=== PATIENT | female | born 1995 ===

== ENCOUNTER 2022-06-09 20:33 | Inpatient (IN) | payer BC ==
[~2022-06-09] VITALS: Ht 160 cm; Wt 56.7 kg
--- NOTE | 2022-06-09 22:37 | NUR ---
Seen and examined by Dr. Shah
[2022-06-09] MEDS ORDERED: IOHEXOL 300MG/ML 100 ML INFUS..BTL ONE (22:43)
[2022-06-09] MEDS ORDERED: IV NORMAL SALINE 250 ML IV ONE (22:43)
[2022-06-09] MEDS ORDERED: SWABABLE VALVE TRANSFER SET EA MC ONE (22:43)
[2022-06-09] MEDS ORDERED: ONDANSETRON 4 MG/2 ML VIAL IV ONE (22:45)
[2022-06-09] MEDS ORDERED: HYDROMORPHONE 1 MG/1 ML DISP.SYRIN IV ONE (22:45)
[2022-06-09 22:53] LABS: HEMATOCRIT 37.3 % (31.2-41.9); MEAN CORPUSCULAR HEMOGLOBIN 31.3 uug (24.7-32.8); MEAN CORPUSCULAR VOLUME 90.4 fL (75.5-95.3); PLATELET COUNT (AUTO) 342 K/uL (179-408)
--- NOTE | 2022-06-09 22:54 | NUR ---
CT in progress. R AC IV SL noted 22g
[2022-06-09] MEDS ORDERED: HYDROMORPHONE 1 MG/1 ML DISP.SYRIN ONE (22:58)
[2022-06-09] MEDS ORDERED: ONDANSETRON 4 MG/2 ML VIAL ONE (22:58)
[2022-06-09 23:19] LABS: BILIRUBIN,DIRECT 0.1 mg/dL (0.0-0.2); BILIRUBIN,TOTAL 0.4 mg/dL (0.2-1.0); CREATININE 0.8 mg/dL (0.6-1.3); POTASSIUM 3.3 mmol/L (3.5-5.1); TOTAL PROTEIN, SERUM 7.7 g/dL (6.4-8.2)
[2022-06-10] VITALS (7 sets, daily range): BP systolic 107–118; BP diastolic 58–72
[2022-06-10] MEDS ORDERED: SPIR100T5 PO (00:26)
[2022-06-10] MEDS ORDERED: REMEDY ESSENTIAL ZINC PASTE 113 GM TP PRN (00:30)
[2022-06-10] MEDS ORDERED: POTASSIUM CHLORIDE 10 MEQ TAB.PRT.SR PO ONE (00:30)
[2022-06-10] MEDS ORDERED: MAGNESIUM HYDROXIDE 30 ML LIQUID UDC PO PRN (00:30)
[2022-06-10] MEDS ORDERED: MORPHINE SULFATE 2 MG/1 ML DISP.SYRIN IV PRN (00:30)
[2022-06-10] MEDS ORDERED: ACETAMINOPHEN 325 MG TABLET PO PRN (00:30)
[2022-06-10] MEDS ORDERED: ONDANSETRON 4 MG/2 ML VIAL IV PRN (00:30)
[2022-06-10] MEDS ORDERED: IV NS 1000 ML 1,000 ML IV PRN (00:30)
[2022-06-10] MEDS ORDERED: PIPERACILLIN/TAZOBACTAM/D5W 50 ML IV ONE (00:39)
[2022-06-10] MEDS ORDERED: PIPERACILLIN SODIUM/TAZOBACTAM 3.375 G in IV DEXTROSE 5% 50 ML IV ONE (00:45)
[2022-06-10] MEDS ORDERED: IV D5W-0.45% NS +20 KCL 1,000 ML IV ONE ×2 (01:07→01:15)
--- NOTE | 2022-06-10 02:46 | NUR ---
Endorsed to [place] BOYKIN, transported pt. to 303
--- NOTE | 2022-06-10 03:00 | NUR ---
PATIENT BROUGHT UP TO THE FLOOR VIA GURNEY. PATIENT IS A/O X4. ADMITTED FOR ABDOMINAL PAIN/APPENDICITIS. VSS UPON ADMISSION TO THE FLOOR. ORIENTED TO ROOM AND CALL LIGHT. CALL LIGHT IN REACH. ALL NEEDS ATTENDED. WILL CONTINUE TO MONITOR AND ASSESS.
[2022-06-10] MEDS ORDERED: PIPERACILLIN SODIUM/TAZOBACTAM 3.375 G in IV DEXTROSE 5% 50 ML IV SCH (06:00)
[2022-06-10] MEDS: PIPERACILLIN SODIUM/TAZOBACTAM 3.375 G in IV DEXTROSE 5% 100 ML IV SCH ×2 (08:35→15:57)
[2022-06-10 10:42] LABS: *URINE HCG, QUAL NEGATIVE (NEGATIVE)
[2022-06-10] MEDS ORDERED: BUPIVACAINE/EPI PF 0.25% 10 ML VIAL IJ ONE (10:55)
[2022-06-10] MEDS ORDERED: LIDOCAINE HCL 1% 20 ML VIAL ONE (10:55)
[2022-06-10] MEDS ORDERED: NEOMY/BACITRAC/POLYMI OINT 28.35 GM TUBE ONE (10:55)
[2022-06-10] MEDS ORDERED: FENTANYL CITRATE 100 MCG/2 ML AMPUL ONE (11:23)
[2022-06-10] MEDS ORDERED: ROCURONIUM BROMIDE 50 MG/5 ML VIAL ONE (11:24)
[2022-06-10] MEDS ORDERED: HYDROMORPHONE 2 MG/1 ML DISP.SYRIN ONE (11:24)
[2022-06-10] MEDS ORDERED: MIDAZOLAM HCL 2 MG/2 ML VIAL ONE (11:24)
[2022-06-10] MEDS ORDERED: FAMOTIDINE. 20 MG/2 ML VIAL IV ONE (11:24)
[2022-06-10] MEDS ORDERED: IV LACTATED RINGERS SOLUTION 1,000 ML IV PRN (14:45)
[2022-06-10] MEDS ORDERED: IV LACTATED RINGERS SOLUTION 1,000 ML IV SCH (14:45)
[2022-06-10] MEDS: GABAPENTIN 300 MG CAPSULE PO SCH ×2 (15:53→20:23)
[2022-06-10] MEDS: ACETAMINOPHEN 325 MG TABLET PO SCH ×2 (15:53→20:23)
--- NOTE | 2022-06-10 19:10 | NUR ---
1500..pt received from surgery..s/p Appendectomy..pt small incision to umbilicus and rlower quadrants..dsg clean dry and intact..pt awake and alert and in no acute resp distress..IV LR at 100/hr infusing via left antecubital..pt denies severe evon..c/o abdominal tenderness when repositioned..pt due to void..ice chips offered..
[2022-06-10] MEDS: CELECOXIB 200 MG CAPSULE PO SCH (20:23)
[2022-06-11 04:00] VITALS: BP 120/70
[2022-06-11] MEDS: ACETAMINOPHEN 325 MG TABLET PO SCH ×3 (05:46→20:27)
[2022-06-11] MEDS: GABAPENTIN 300 MG CAPSULE PO SCH ×3 (05:47→20:27)
[2022-06-11 07:26] LABS: HEMATOCRIT 31.4 % (31.2-41.9); MEAN CORPUSCULAR HEMOGLOBIN 31.8 uug (24.7-32.8); MEAN CORPUSCULAR VOLUME 91.4 fL (75.5-95.3); PLATELET COUNT (AUTO) 263 K/uL (179-408)
[2022-06-11 07:42] LABS: CREATININE 0.8 mg/dL (0.6-1.3); MAGNESIUM 1.8 mg/dL (1.8-2.4); PHOSPHOROUS 4.1 mg/dL (2.5-4.9); POTASSIUM 3.6 mmol/L (3.5-5.1)
[2022-06-11] MEDS: PIPERACILLIN SODIUM/TAZOBACTAM 3.375 G in IV DEXTROSE 5% 100 ML IV SCH ×4 (07:47→15:18)
[2022-06-11] MEDS: CELECOXIB 200 MG CAPSULE PO SCH ×2 (08:03→20:26)
[2022-06-11 11:07] VITALS: BP 109/67
[2022-06-11 15:08] VITALS: BP 114/58
[2022-06-11 20:00] VITALS: BP 96/57
[2022-06-12] MEDS: PIPERACILLIN SODIUM/TAZOBACTAM 3.375 G in IV DEXTROSE 5% 100 ML IV SCH ×3 (01:09→15:01)
[2022-06-12 04:00] VITALS: BP 105/56
[2022-06-12] MEDS: GABAPENTIN 300 MG CAPSULE PO SCH ×2 (06:24→13:15)
[2022-06-12] MEDS: ACETAMINOPHEN 325 MG TABLET PO SCH ×2 (06:25→13:15)
[2022-06-12 06:50] LABS: HEMATOCRIT 28.7 % (31.2-41.9); MEAN CORPUSCULAR HEMOGLOBIN 32.4 uug (24.7-32.8); MEAN CORPUSCULAR VOLUME 91.9 fL (75.5-95.3); PLATELET COUNT (AUTO) 233 K/uL (179-408)
[2022-06-12 06:58] LABS: CREATININE 0.8 mg/dL (0.6-1.3); MAGNESIUM 1.6 mg/dL (1.8-2.4); PHOSPHOROUS 4.1 mg/dL (2.5-4.9); POTASSIUM 3.4 mmol/L (3.5-5.1)
[2022-06-12] MEDS: CELECOXIB 200 MG CAPSULE PO SCH (08:07)
[2022-06-12] MEDS: MAGNESIUM SULFATE/D5W 100 ML IV SCH ×2 (09:03→09:24)
[2022-06-12] MEDS ORDERED: POTASSIUM CHLORIDE 20 MEQ TAB.PRT.SR PO ONE (10:00)
[2022-06-12 11:31] VITALS: BP 104/56
[2022-06-12] MEDS ORDERED: LIDOCAINE-MPF 2% 5 ML VIAL IJ ONE (16:44)
[2022-06-12] MEDS ORDERED: SEVOFLURANE 250 ML BOTTLE IH ONE (16:44)
[2022-06-12] MEDS ORDERED: CEFAZOLIN 1 G VIAL IM ONE (16:44)
[2022-06-12] MEDS ORDERED: PROPOFOL 200 MG/20 ML BOTTLE IV ONE (16:44)
[2022-06-12] MEDS ORDERED: GLYCOPYRROLATE 0.2 MG/ML VIAL IJ ONE (16:44)
[2022-06-12] MEDS ORDERED: ONDANSETRON 4 MG/2 ML VIAL IV ONE (16:44)
[2022-06-12] MEDS ORDERED: METOCLOPRAMIDE HCL 10 MG/2 ML VIAL IV ONE (16:44)
[2022-06-12] MEDS ORDERED: DEXAMETHASONE SOD PHOSPHATE 4 MG INJ IV ONE (16:44)
[2022-06-12] MEDS ORDERED: NEOSTIGMINE METHYLSULFATE 10 MG/10 ML VIAL IM ONE (16:44)
--- NOTE | 2022-06-12 16:47 | NUR ---
dc orders received noted and carried out,dc instruction and education given to the pt,bora lindsay per md orders.pt left the facility via private car in stable condition
== END 2022-06-12 16:45 | disposition home or self-care (01) | DRG 341 ==
LOC: ER 20:40 → MEDSURG3 06-10 01:10
PROVIDERS: ADMIT Nurse Practitioner Acute Care; ATTEND Nurse Practitioner Acute Care
PROC: 0DTJ4ZZ Resection of Appendix, Percutaneous Endoscopic Approach (ICD-10-PCS; principal; 2022-06-10)
PROC: 0UB64ZZ Excision of Left Fallopian Tube, Percutaneous Endoscopic Approach (ICD-10-PCS; 2022-06-10)
PROC: 0U514ZZ Destruction of Left Ovary, Percutaneous Endoscopic Approach (ICD-10-PCS; 2022-06-10)
DX: K35.80 Unspecified acute appendicitis (principal); K66.1 Hemoperitoneum; N83.202 Unspecified ovarian cyst, left side; Q50.5 Embryonic cyst of broad ligament; E87.6 Hypokalemia; D72.829 Elevated white blood cell count, unspecified; N83.8 Other noninflammatory disorders of ovary, fallopian tube and broad ligament; Z20.822 Contact with and (suspected) exposure to COVID-19
CPT/HCPCS: 36415; 83690; 83735; 84100; 84703; 85025; 85730; A4663; G0378; J0690; J1100; J1170; J2250; J2405; J2543; J2765; J3010; J3475; J3490; J7040; J7120; Q9967